=== PATIENT | male | born 1950 | race Caucasian/White ===

== ENCOUNTER 2021-01-23 09:01 | Outpatient (CLI) | payer MEDICARE ==
[2021-01-23 10:14] LABS: Hemoglobin 14.5 g/dL (13.5-17.5); Mean Corpuscular HGB CONC 33.5 g/dL (32.0-36.0); Mean Corpuscular Hemoglobin 30.3 pg (27.0-33.0); Mean Corpuscular Volume 90.4 fl (81.2-95.1); Mean Platelet Volume 9.9 fl (7.4-10.4); Platelet Count 234 10x3/uL (150-450); RBC Distribution Width 13.3 % (11.5-14.5); Red Blood Cell (RBC) Count 4.79 10x6/uL (4.32-5.72); White Blood Cell (WBC) Count 7.8 10x3/uL (3.5-10.5)
[2021-01-23 10:22] LABS: Prothrombin Time 11.3 sec (9.5-12.1)
[2021-01-23 10:44] LABS: Anion Gap 13 mmol/L (10-20); BUN (Urea Nitrogen) 13 mg/dL (8.4-25.7); Calc. Creatinine Clearance 0 mL/min (70-130); Calcium 9.7 mg/dL (7.8-10.44); Carbon Dioxide 26 mmol/L (23-31); Chloride 104 mmol/L (98-107); Glucose 138 mg/dL (83-110); Potassium 4.1 mmol/L (3.5-5.1); Sodium 139 mmol/L (136-145)
[2021-01-23 21:46] LABS: SARS-CoV-2 PCR by NAA Not Detected (NotDetected)
== END 2021-01-23 09:02 | disposition home or self-care (01) ==
LOC: LABBT 09:01
PROVIDERS: ATTEND Internal Medicine Cardiovascular Disease
DX: Z01.812 Encounter for preprocedural laboratory examination (principal); I48.0 Paroxysmal atrial fibrillation; Z20.822 Contact with and (suspected) exposure to COVID-19
CPT/HCPCS: 80048; 85027; 85610; U0003; U0005

== ENCOUNTER 2021-01-26 05:52 | Day surgery (SDC) | payer MEDICARE ==
[2021-01-25 09:55] VITALS: BMI 36.9
[2021-01-26] MEDS ORDERED: Fentanyl 100 MCG/2 ML VIAL ONE (06:17)
[2021-01-26] MEDS ORDERED: Heparin 25,000 units/D5W 500 ML ONE (06:44)
[2021-01-26] MEDS ORDERED: Heparin 10,000 UNITS/ 10 ML VIAL ONE (06:44)
[2021-01-26] MEDS ORDERED: PHENYLEPHRINE-NS 100 MCG/ML 10 ML SYRINGE ONE (06:52)
[2021-01-26] MEDS ORDERED: Ondansetron PF 4 MG/2 ML Vial ONE (06:52)
[2021-01-26] MEDS ORDERED: Lidocaine 1% PF 5 ML VIAL ONE (06:52)
[2021-01-26] MEDS ORDERED: Dexamethasone 20 MG/5 ML VIAL ONE (06:52)
[2021-01-26] MEDS ORDERED: Rocuronium Bromide 10 MG/ML (10ML VIAL) ONE (06:52)
[2021-01-26] MEDS ORDERED: PROPOFOL 200 MG/20 ML VIAL ONE (06:52)
[2021-01-26] MEDS ORDERED: ePHEDrine 50 MG/ML VIAL ONE (06:52)
[2021-01-26] MEDS ORDERED: Scopolamine 1.5 mg/72 hour Patch ONE (07:00)
[2021-01-26] MEDS ORDERED: SUGAMMADEX SODIUM 200 MG/2 ML VIAL ONE (10:11)
[2021-01-26] MEDS ORDERED: Protamine Sulfate 50 MG/5 ML VIAL ONE (10:11)
== END 2021-01-26 14:48 | disposition home or self-care (01) ==
LOC: SDC 05:52
PROVIDERS: ATTEND Internal Medicine Cardiovascular Disease
PROC: 4A0234Z Measurement of Cardiac Electrical Activity, Percutaneous Approach (ICD-10-PCS; principal; 2021-01-26)
PROC: 02583ZZ Destruction of Conduction Mechanism, Percutaneous Approach (ICD-10-PCS; 2021-01-26)
PROC: 02K83ZZ Map Conduction Mechanism, Percutaneous Approach (ICD-10-PCS; 2021-01-26)
PROC: B24CZZ4 Ultrasonography of Pericardium, Transesophageal (ICD-10-PCS; 2021-01-26)
PROC: B24BZZ4 Ultrasonography of Heart with Aorta, Transesophageal (ICD-10-PCS; 2021-01-26)
DX: I48.0 Paroxysmal atrial fibrillation (principal); I48.3 Typical atrial flutter; Z79.82 Long term (current) use of aspirin; Z79.01 Long term (current) use of anticoagulants; Z79.4 Long term (current) use of insulin; Z79.899 Other long term (current) drug therapy; Z98.890 Other specified postprocedural states; Z87.19 Personal history of other diseases of the digestive system
CPT/HCPCS: 76942; 85347 ×2; 93005; 93312; 93613; 93623; 93655; 93656; 93657; 93662; C1730; C1731; C1732; C1759; C2630; J1100; J1644; J2405; J2704; J2720; J3010; J3490

== ENCOUNTER 2021-12-22 11:55 | Outpatient (CLI) | payer MEDICARE ==
[2021-12-20 12:24] VITALS: BMI 35.1
[2021-12-22] MEDS ORDERED: Midazolam HCl 2 mg/2 ml Vial ONE (13:23)
== END 2021-12-22 14:57 | disposition home or self-care (01) ==
LOC: MRI 11:55
PROVIDERS: ATTEND Anesthesiology
DX: M51.16 Intervertebral disc disorders with radiculopathy, lumbar region (principal); M47.26 Other spondylosis with radiculopathy, lumbar region; M47.817 Spondylosis without myelopathy or radiculopathy, lumbosacral region; M47.815 Spondylosis without myelopathy or radiculopathy, thoracolumbar region; I71.4 Abdominal aortic aneurysm, without rupture
CPT/HCPCS: 72148; J2250

== ENCOUNTER 2022-03-26 19:42 | Inpatient (IN) | payer MEDICARE ==
[2022-03-26] MEDS ORDERED: Ondansetron PF 4 MG/2 ML Vial ONE (20:18)
[2022-03-26] MEDS ORDERED: Piperacillin/Tazobactam 3.375 GM VIAL ONE (20:35)
[2022-03-26] MEDS ORDERED: Sodium Chloride 0.9% 100 ML ONE (20:35)
[2022-03-26 21:03] LABS: Hemoglobin 15.9 g/dL (14.0-18.0); Mean Corpuscular Hemoglobin 31.9 pg (27.0-31.0); Mean Corpuscular Volume 96.9 fL (78.0-98.0); Mean Platelet Volume 7.6 fL (7.4-10.4); Platelet Count 267 thou/uL (130-400); RBC Distribution Width 12.5 % (11.5-14.5); Red Blood Cell (RBC) Count 4.98 mill/uL (4.70-6.10); White Blood Cell (WBC) Count 8.8 thou/uL (4.8-10.8)
[2022-03-26 21:18] LABS: Band 16 % (5-11); Lymphocytes 10 % (21-51); MDiff Complete? YES; Monocytes 14 % (0-10); Neutrophil 54 % (42-75); Platelet Morphology Comment Appears Adequate; RBC Morphology Normal; Reactive Lymphocytes 6 % (0-10)
[2022-03-26 21:47] LABS: SARS-CoV-2 NAA Rapid Test Not Detected (NotDetected)
[2022-03-26 21:47] LABS: ALT (SGPT) 15 U/L (8-55); AST (SGOT) 28 U/L (5-34); Albumin 3.8 g/dL (3.4-4.8); Alkaline Phosphatase 96 U/L (40-110); Anion Gap 16 mmol/L (10-20); BUN (Urea Nitrogen) 29 mg/dL (8.4-25.7); Bilirubin, Total 1.5 mg/dL (0.2-1.2); Calc. Creatinine Clearance 0 mL/min (70-130); Calcium 8.5 mg/dL (7.8-10.44); Carbon Dioxide 20 mmol/L (23-31); Chloride 105 mmol/L (98-107); Estimated GFR 61; Globulin 2.6 g/dL (2.4-3.5); Glucose 185 mg/dL (83-110); Lipase 8 U/L (8-78); Potassium 3.9 mmol/L (3.5-5.1); Protein, Total 6.4 g/dL (5.8-8.1); Sodium 137 mmol/L (136-145)
[2022-03-27] MEDS ORDERED: Acetaminophen 325 MG TAB PO PRN (04:00)
[2022-03-27] MEDS ORDERED: Ondansetron ODT 4 MG TAB SL PRN (04:00)
[2022-03-27] MEDS ORDERED: Ondansetron PF 4 MG/2 ML Vial IVP PRN (04:00)
[2022-03-27] MEDS ORDERED: Dextrose 5% in Water 1,000 ML IV PRN (05:42)
[2022-03-27] MEDS ORDERED: Dextrose 50% Abboject 50 ML SYRINGE SLOW IVP PRN (05:42)
[2022-03-27] MEDS ORDERED: HumaLOG 300 UNITS/3 ML VIAL SC PRN ×2 (05:42)
[2022-03-27 06:40] VITALS: BMI 35.6
[2022-03-27] MEDS: Piperacillin/Tazobactam 3.375 GM in Sodium Chloride 0.9% 100 ML IVPB SCH ×2 (06:49→12:00)
[2022-03-27] MEDS: Sodium Chloride 0.9% 1,000 ML IV SCH ×2 (06:53→15:45)
[2022-03-27 12:57] LABS: Bilirubin Negative (Negative); Blood, Urine Negative (Negative); Clarity Clear (Clear); Glucose, Urine (Dipstick) Normal (Negative); Ketone, Urine 60 mg/dL (Negative); Leukocyte Negative Leu/uL (Negative); Nitrite Negative (Negative); Protein, Urine (Dipstick) 10 mg/dL (Neg-Trace); Urobilinogen Normal mg/dL (Less than 2); pH, Urine 5.5 (5.0-9.0)
[2022-03-27 13:03] LABS: Specific Gravity, Urine 1.046 (1.002-1.036)
[2022-03-27] MEDS ORDERED: Iopamidol-370 76% 500 ML 1 ML ONE (15:00)
[2022-03-27 16:25] VITALS: BP 133/90; TEMP 97.3
[2022-03-28] MEDS ORDERED: Atorvastatin Calcium 20 MG TAB PO SCH (09:00)
== END 2022-03-27 16:30 | disposition home or self-care (01) | DRG 393 ==
LOC: ERS 19:42 → 2NO 03-27 02:43
PROVIDERS: ADMIT Internal Medicine; ATTEND Hospitalist
DX: K35.80 Unspecified acute appendicitis (principal); I71.02 Dissection of abdominal aorta; I48.0 Paroxysmal atrial fibrillation; E11.9 Type 2 diabetes mellitus without complications; N28.89 Other specified disorders of kidney and ureter; E78.00 Pure hypercholesterolemia, unspecified; E66.9 Obesity, unspecified; G47.33 Obstructive sleep apnea (adult) (pediatric); Z79.01 Long term (current) use of anticoagulants; Z79.899 Other long term (current) drug therapy; E86.0 Dehydration; I11.9 Hypertensive heart disease without heart failure; D49.0 Neoplasm of unspecified behavior of digestive system; K52.9 Noninfective gastroenteritis and colitis, unspecified; Z87.891 Personal history of nicotine dependence; Z68.35 Body mass index [BMI] 35.0-35.9, adult; Z20.822 Contact with and (suspected) exposure to COVID-19
CPT/HCPCS: 36415; 36416; 74177; 80053; 81003; 83605; 83690; 84484; 85025; 87040; 93005; 96361; 96365; 96375; G0103; J2405; J2543; J3490; Q9967

== ENCOUNTER 2022-04-06 11:26 | Outpatient (CLI) | payer MEDICARE ==
[~2022-04-06 11:26] MED LIST: Iopamidol 370 76% 100 ML VIAL ONE
== END 2022-04-06 11:27 | disposition home or self-care (01) ==
LOC: CT 11:26
PROVIDERS: ATTEND Urology
DX: N28.1 Cyst of kidney, acquired (principal); N28.89 Other specified disorders of kidney and ureter; I48.91 Unspecified atrial fibrillation; I71.43 Infrarenal abdominal aortic aneurysm, without rupture; I71.40 Abdominal aortic aneurysm, without rupture, unspecified; K57.30 Diverticulosis of large intestine without perforation or abscess without bleeding; I77.89 Other specified disorders of arteries and arterioles
CPT/HCPCS: 71260; 74175; 74178

== ENCOUNTER 2022-05-01 09:30 | Inpatient (IN) | payer MEDICARE ==
[2022-05-14] MEDS ORDERED: Levofloxacin 500 mg/D5W 100 ml Premix Bag ONE (06:28)
[2022-05-14] MEDS ORDERED: Gentamicin 80 MG/2 ML VIAL ONE (06:31)
[2022-05-14] MEDS ORDERED: fentaNYL PF 100 MCG/2 ML SYRINGE ONE ×2 (06:51)
[2022-05-14 06:55] LABS: PTT 30.8 sec (22.9-36.1); Prothrombin Time 13.9 sec (12.0-14.7)
[2022-05-14 07:11] LABS: SARS-CoV-2 NAA Rapid Test Not Detected (NotDetected)
[2022-05-14] MEDS ORDERED: Sodium Chloride 0.9% 100 ML ONE (07:24)
[2022-05-14] MEDS ORDERED: CEFAZOLIN 2 GM VIAL ONE (07:24)
[2022-05-14] MEDS ORDERED: Dexamethasone 20 MG/5 ML VIAL ONE (07:36)
[2022-05-14] MEDS ORDERED: Rocuronium Bromide 10 MG/ML (10ML VIAL) ONE (07:36)
[2022-05-14] MEDS ORDERED: Lidocaine 1.5% w/Epi 1:200K 30 ML VIAL (Epid Use) ONE (07:36)
[2022-05-14] MEDS ORDERED: Phenylephrine 10 MG/ML VIAL ONE (07:36)
[2022-05-14] MEDS ORDERED: Ondansetron PF 4 MG/2 ML Vial ONE (07:36)
[2022-05-14] MEDS ORDERED: ePHEDrine 50 MG/ML VIAL ONE (07:36)
[2022-05-14] MEDS ORDERED: PROPOFOL 200 MG/20 ML VIAL ONE (07:36)
[2022-05-14] MEDS ORDERED: Vecuronium 10 MG VIAL ONE (07:36)
[2022-05-14] MEDS ORDERED: Ropivacaine 0.2% HCl/PF 20 ML ONE (08:04)
[2022-05-14] MEDS ORDERED: Albumin 5% 500 ML ONE (08:40)
[2022-05-14] MEDS ORDERED: SUGAMMADEX SODIUM 200 MG/2 ML VIAL ONE (10:59)
[2022-05-14] MEDS ORDERED: Phenazopyridine HCl 95 MG TAB PO PRN (11:36)
[2022-05-14] MEDS ORDERED: Dextrose 50% Abboject 50 ML SYRINGE SLOW IVP PRN (11:36)
[2022-05-14] MEDS ORDERED: Bisacodyl 10 MG SUPP PR PRN (11:36)
[2022-05-14] MEDS ORDERED: Insulin Regular 300 UNITS/3 ML VIAL SC PRN (11:36)
[2022-05-14] MEDS ORDERED: hydrALAZINE 20 MG/ML VIAL SLOW IVP PRN (11:36)
[2022-05-14] MEDS ORDERED: Mag-Al 1200 mg/1200 mg/30 ML UDCUP PO PRN (11:36)
[2022-05-14] MEDS ORDERED: Ondansetron PF 4 MG/2 ML Vial IVP PRN ×2 (11:36→11:45)
[2022-05-14] MEDS ORDERED: Dextrose 5% in Water 1,000 ML IV PRN (11:36)
[2022-05-14] MEDS ORDERED: Oxybutynin 5 MG TAB PO PRN (11:36)
[2022-05-14] MEDS ORDERED: Zolpidem Tartrate 5 MG TAB PO PRN ×2 (11:36→11:45)
[2022-05-14] MEDS ORDERED: diphenhydrAMINE 50 MG/ML VIAL IVP PRN ×2 (11:36→11:45)
[2022-05-14] MEDS ORDERED: FENTANYL 50 MCG/ML 1 ML VIAL SLOW IVP PRN (11:39)
[2022-05-14] MEDS ORDERED: Acetaminophen 325 MG TAB PO PRN (11:40)
[2022-05-14] MEDS ORDERED: HYDROcodone/Acetaminophen 5/325 mg Tablet PO PRN (11:41)
[2022-05-14] MEDS ORDERED: traMADol HCl 50 MG TAB PO PRN (11:42)
[2022-05-14] MEDS ORDERED: Promethazine HCl 25 MG/ML VIAL IM PRN (11:45)
[2022-05-14] MEDS ORDERED: Bupivacaine 0.25% 10 ML VIAL EPIDURAL PRN (11:45)
[2022-05-14] MEDS ORDERED: Promethazine HCl 25 MG SUPP PR PRN (11:45)
[2022-05-14] MEDS ORDERED: Naloxone HCl 0.4 mg/ml Vial IVP PRN (11:45)
[2022-05-14] MEDS ORDERED: Moisturizing Cream (Eucerin) 113 GM JAR TOP PRN (11:45)
[2022-05-14] MEDS ORDERED: diphenhydrAMINE 50 MG/ML VIAL IM PRN (11:45)
[2022-05-14] MEDS ORDERED: diphenhydrAMINE 25 MG CAP PO PRN (11:45)
[2022-05-14] MEDS ORDERED: Naloxone HCl 0.4 mg/ml Vial IV PRN (11:45)
[2022-05-14] MEDS ORDERED: FENTANYL 50 MCG/ML 1 ML VIAL ONE (11:50)
[2022-05-14 11:53] LABS: #Eosinphils 0.1 thou/uL (0.0-0.7); #Lymphocytes 0.9 thou/uL (1.20-3.40); #Monocytes 0.3 thou/uL (0.11-0.59); #Neutrophils 9.9 thou/uL (1.40-6.50); %Basophils 0.1 % (0.0-1.0); %Eosinophils 0.6 % (0.0-10.0); %Lymphocytes 8.3 % (21.0-51.0); %Monocytes 2.6 % (0.0-10.0); %Neutrophils 88.4 % (42.0-75.0); Hemoglobin 12.6 g/dL (14.0-18.0); Mean Corpuscular HGB CONC 34.2 g/dL (32.0-36.0); Mean Corpuscular Hemoglobin 32.2 pg (27.0-31.0); Mean Corpuscular Volume 94.1 fl (78.0-98.0); Mean Platelet Volume 7.1 fL (7.4-10.4); Platelet Count 193 10x3/uL (130-400); Red Blood Cell (RBC) Count 3.92 mill/uL (4.70-6.10); White Blood Cell (WBC) Count 11.3 10x3/uL (4.8-10.8)
[2022-05-14 12:10] LABS: Anion Gap 12 mmol/L (10-20); BUN (Urea Nitrogen) 10 mg/dL (8.4-25.7); Calc. Creatinine Clearance 113 mL/min (70-130); Calcium 8.1 mg/dL (7.8-10.44); Carbon Dioxide 23 mmol/L (23-31); Chloride 107 mmol/L (98-107); Estimated GFR 82; Glucose 146 mg/dL (83-110); Potassium 3.8 mmol/L (3.5-5.1); Sodium 138 mmol/L (136-145)
[2022-05-14 22:31] VITALS: BMI 33.7
[2022-05-14] MEDS: Sodium Chloride 0.9% 1,000 ML IV SCH (22:55)
[2022-05-14] MEDS: Atorvastatin Calcium 20 MG TAB PO SCH (22:55)
[2022-05-14] MEDS: Famotidine/PF 20 mg/2ml Vial SLOW IVP SCH (22:56)
[2022-05-14] MEDS: Docusate 100 MG CAP PO SCH (22:56)
[2022-05-15] MEDS: Fentanyl/Bupivacaine 100 ML EPIDURAL SCH ×2 (01:37→14:27)
[2022-05-15 05:13] LABS: #Monocytes 0.8 thou/uL (0.11-0.59); #Neutrophils 7.7 thou/uL (1.40-6.50); %Basophils 0.1 % (0.0-1.0); %Eosinophils 0.3 % (0.0-10.0); %Lymphocytes 10.6 % (21.0-51.0); %Monocytes 8.3 % (0.0-10.0); %Neutrophils 80.7 % (42.0-75.0); Hemoglobin 11.5 g/dL (14.0-18.0); Mean Corpuscular HGB CONC 33.5 g/dL (32.0-36.0); Mean Corpuscular Hemoglobin 31.9 pg (27.0-31.0); Mean Corpuscular Volume 95.2 fl (78.0-98.0); Mean Platelet Volume 7.4 fL (7.4-10.4); Platelet Count 178 10x3/uL (130-400); RBC Distribution Width 12.1 % (11.5-14.5); White Blood Cell (WBC) Count 9.5 10x3/uL (4.8-10.8)
[2022-05-15 05:29] LABS: Anion Gap 12 mmol/L (10-20); BUN (Urea Nitrogen) 12 mg/dL (8.4-25.7); Calc. Creatinine Clearance 96 mL/min (70-130); Calcium 7.8 mg/dL (7.8-10.44); Carbon Dioxide 21 mmol/L (23-31); Chloride 107 mmol/L (98-107); Estimated GFR 69; Glucose 125 mg/dL (83-110); Potassium 3.9 mmol/L (3.5-5.1); Sodium 136 mmol/L (136-145)
[2022-05-15] MEDS: cefTRIAXone\\ROCEPHIN 1 GM in Sodium Chloride 0.9% 100 ML IVPB SCH (06:07)
[2022-05-15] MEDS: Tamsulosin HCl 0.4 MG CAP PO SCH (08:57)
[2022-05-15] MEDS: Famotidine/PF 20 mg/2ml Vial SLOW IVP SCH ×2 (08:57→20:22)
[2022-05-15] MEDS: Docusate 100 MG CAP PO SCH ×2 (08:57→20:21)
[2022-05-15] MEDS: Hydrochlorothiazide 25 MG TAB PO SCH (08:58)
[2022-05-15] MEDS ORDERED: FLU VACC QS2022-23(65YR UP)/PF 240 MCG/0.7 ML SYRINGE IM ONE (09:00)
[2022-05-15 16:27] LABS: Hemoglobin 11.5 g/dL (14.0-18.0)
[2022-05-15] MEDS: Acetaminophen 500 MG TAB PO PRN (17:20)
[2022-05-15] MEDS: Atorvastatin Calcium 20 MG TAB PO SCH (20:21)
[2022-05-16] MEDS: Fentanyl/Bupivacaine 100 ML EPIDURAL SCH ×2 (02:49→18:03)
[2022-05-16] MEDS: cefTRIAXone\\ROCEPHIN 1 GM in Sodium Chloride 0.9% 100 ML IVPB SCH (05:34)
[2022-05-16 06:49] LABS: #Eosinphils 0.1 thou/uL (0.0-0.7); #Lymphocytes 1.1 thou/uL (1.20-3.40); #Monocytes 0.8 thou/uL (0.11-0.59); #Neutrophils 7.3 thou/uL (1.40-6.50); %Basophils 0.3 % (0.0-1.0); %Eosinophils 1.2 % (0.0-10.0); %Lymphocytes 12.1 % (21.0-51.0); %Monocytes 8.1 % (0.0-10.0); %Neutrophils 78.4 % (42.0-75.0); Hemoglobin 11.6 g/dL (14.0-18.0); Mean Corpuscular HGB CONC 33.3 g/dL (32.0-36.0); Mean Corpuscular Hemoglobin 31.7 pg (27.0-31.0); Mean Corpuscular Volume 95.4 fl (78.0-98.0); Mean Platelet Volume 7.1 fL (7.4-10.4); Platelet Count 175 10x3/uL (130-400); RBC Distribution Width 11.9 % (11.5-14.5); Red Blood Cell (RBC) Count 3.66 mill/uL (4.70-6.10); White Blood Cell (WBC) Count 9.3 10x3/uL (4.8-10.8)
[2022-05-16 07:04] LABS: Anion Gap 13 mmol/L (10-20); BUN (Urea Nitrogen) 10 mg/dL (8.4-25.7); Calc. Creatinine Clearance 84 mL/min (70-130); Calcium 8.3 mg/dL (7.8-10.44); Carbon Dioxide 23 mmol/L (23-31); Chloride 102 mmol/L (98-107); Estimated GFR 59; Glucose 118 mg/dL (83-110); Potassium 3.8 mmol/L (3.5-5.1); Sodium 134 mmol/L (136-145)
[2022-05-16] MEDS: Acetaminophen 500 MG TAB PO PRN (09:42)
[2022-05-16] MEDS: Docusate 100 MG CAP PO SCH ×2 (09:43→20:29)
[2022-05-16] MEDS: Famotidine/PF 20 mg/2ml Vial SLOW IVP SCH ×2 (09:43→20:29)
[2022-05-16] MEDS: Hydrochlorothiazide 25 MG TAB PO SCH (09:43)
[2022-05-16] MEDS: Tamsulosin HCl 0.4 MG CAP PO SCH (09:43)
[2022-05-16] MEDS: Atorvastatin Calcium 20 MG TAB PO SCH (20:29)
[2022-05-17] MEDS: cefTRIAXone\\ROCEPHIN 1 GM in Sodium Chloride 0.9% 100 ML IVPB SCH (05:39)
[2022-05-17 06:25] LABS: #Eosinphils 0.2 thou/uL (0.0-0.7); #Monocytes 0.8 thou/uL (0.11-0.59); #Neutrophils 6.7 thou/uL (1.40-6.50); %Basophils 0.2 % (0.0-1.0); %Eosinophils 2.6 % (0.0-10.0); %Lymphocytes 11.5 % (21.0-51.0); %Monocytes 8.6 % (0.0-10.0); %Neutrophils 77.1 % (42.0-75.0); Hemoglobin 11.9 g/dL (14.0-18.0); Mean Corpuscular HGB CONC 33.1 g/dL (32.0-36.0); Mean Corpuscular Hemoglobin 30.9 pg (27.0-31.0); Mean Corpuscular Volume 93.2 fl (78.0-98.0); Mean Platelet Volume 7.6 fL (7.4-10.4); Platelet Count 206 10x3/uL (130-400); RBC Distribution Width 11.8 % (11.5-14.5); Red Blood Cell (RBC) Count 3.84 mill/uL (4.70-6.10); White Blood Cell (WBC) Count 8.7 10x3/uL (4.8-10.8)
[2022-05-17 06:32] LABS: Anion Gap 11 mmol/L (10-20); BUN (Urea Nitrogen) 11 mg/dL (8.4-25.7); Calc. Creatinine Clearance 92 mL/min (70-130); Calcium 8.8 mg/dL (7.8-10.44); Carbon Dioxide 27 mmol/L (23-31); Chloride 97 mmol/L (98-107); Estimated GFR 66; Glucose 125 mg/dL (83-110); Potassium 3.2 mmol/L (3.5-5.1); Sodium 132 mmol/L (136-145)
[2022-05-17] MEDS ORDERED: Bupivacaine 0.25% 10 ML VIAL EPIDURAL PRN (07:11)
[2022-05-17] MEDS: Hydrochlorothiazide 25 MG TAB PO SCH (09:16)
[2022-05-17] MEDS: Tamsulosin HCl 0.4 MG CAP PO SCH (09:16)
[2022-05-17] MEDS: Docusate 100 MG CAP PO SCH ×2 (09:16→22:15)
[2022-05-17] MEDS: Famotidine/PF 20 mg/2ml Vial SLOW IVP SCH ×2 (09:16→22:15)
[2022-05-17] MEDS: Fentanyl/Bupivacaine 100 ML EPIDURAL SCH (10:17)
[2022-05-17] MEDS: traMADol HCl 50 MG TAB PO PRN (18:12)
[2022-05-17] MEDS: Atorvastatin Calcium 20 MG TAB PO SCH (22:14)
[2022-05-17] MEDS: HYDROcodone/Acetaminophen 5/325 mg Tablet PO PRN (22:19)
[2022-05-18] MEDS: traMADol HCl 50 MG TAB PO PRN ×2 (00:17→06:24)
[2022-05-18] MEDS: HYDROcodone/Acetaminophen 5/325 mg Tablet PO PRN (03:03)
[2022-05-18 05:37] LABS: #Eosinphils 0.4 thou/uL (0.0-0.7); #Lymphocytes 1.5 thou/uL (1.20-3.40); #Monocytes 0.8 thou/uL (0.11-0.59); #Neutrophils 5.2 thou/uL (1.40-6.50); %Basophils 0.1 % (0.0-1.0); %Eosinophils 4.8 % (0.0-10.0); %Lymphocytes 18.6 % (21.0-51.0); %Neutrophils 66.5 % (42.0-75.0); Hemoglobin 12.5 g/dL (14.0-18.0); Mean Corpuscular HGB CONC 33.5 g/dL (32.0-36.0); Mean Corpuscular Hemoglobin 31.2 pg (27.0-31.0); Mean Corpuscular Volume 93.1 fl (78.0-98.0); Mean Platelet Volume 7.4 fL (7.4-10.4); Platelet Count 263 10x3/uL (130-400); RBC Distribution Width 11.7 % (11.5-14.5); White Blood Cell (WBC) Count 7.8 10x3/uL (4.8-10.8)
[2022-05-18 06:54] LABS: Chloride 94 mmol/L (98-107); Potassium 3.1 mmol/L (3.5-5.1); Sodium 132 mmol/L (136-145)
[2022-05-18 06:55] LABS: Calcium 8.8 mg/dL (7.8-10.44); Glucose 128 mg/dL (83-110)
[2022-05-18 06:56] LABS: Anion Gap 12 mmol/L (10-20); Carbon Dioxide 29 mmol/L (23-31)
[2022-05-18 06:58] LABS: Calc. Creatinine Clearance 96 mL/min (70-130); Estimated GFR 69
[2022-05-18 06:59] LABS: BUN (Urea Nitrogen) 13 mg/dL (8.4-25.7)
[2022-05-18 08:14] VITALS: BP 153/91; TEMP 97.5
[2022-05-18] MEDS: Hydrochlorothiazide 25 MG TAB PO SCH (08:23)
[2022-05-18] MEDS: Docusate 100 MG CAP PO SCH (08:23)
[2022-05-18] MEDS: Tamsulosin HCl 0.4 MG CAP PO SCH (08:23)
[2022-05-23 14:21] LABS: Actual Bicarbonate (HCO3a) 24.3 mEq/L (22-28); Analyzer IN Cardio OR; CO2 Tension 38.4 mmHg (35.0-45.0); Calcium, Ionized (arterial) 1.07 mmol/L (1.12-1.30); Carboxyhemoglobin (COHb) 0.8 gm% (0.0-3.0); Hemoglobin (Hb) 12.8 g/dL (14.0-18.0); O2 Tension (PaO2), arterial 398.5 mmHg (> 70.0); Potassium - ABG Lab 3.14 mmol/L (3.70-5.30); pH, Arterial 7.42 (7.35-7.45)
[2022-05-23 14:22] LABS: Puncture Site Arterial Line
== END 2022-05-18 10:50 | disposition home or self-care (01) | DRG 658 ==
LOC: SURG A 05-14 05:42
PROVIDERS: ADMIT Urology; ATTEND Urology
PROC: 0TB10ZZ Excision of Left Kidney, Open Approach (ICD-10-PCS; principal; 2022-05-14)
PROC: 30233J1 Transfusion of Nonautologous Serum Albumin into Peripheral Vein, Percutaneous Approach (ICD-10-PCS; 2022-05-14)
DX: C64.2 Malignant neoplasm of left kidney, except renal pelvis (principal); I48.91 Unspecified atrial fibrillation; I10 Essential (primary) hypertension; E11.9 Type 2 diabetes mellitus without complications; E78.00 Pure hypercholesterolemia, unspecified; M54.9 Dorsalgia, unspecified; G89.29 Other chronic pain; N28.1 Cyst of kidney, acquired; R35.0 Frequency of micturition; I71.43 Infrarenal abdominal aortic aneurysm, without rupture; D17.71 Benign lipomatous neoplasm of kidney; N20.0 Calculus of kidney; E66.01 Morbid (severe) obesity due to excess calories; Z20.822 Contact with and (suspected) exposure to COVID-19; Z90.89 Acquired absence of other organs; Z98.890 Other specified postprocedural states; Z79.01 Long term (current) use of anticoagulants; Z87.891 Personal history of nicotine dependence; Z68.35 Body mass index [BMI] 35.0-35.9, adult; Z79.899 Other long term (current) drug therapy
CPT/HCPCS: 36415; 36416; 71045; 80048; 82570; 85025; 85610; 85730; 86850; 86900; 86901; 88307; 88341; 88342; A4649; C1713; C1776; C1889; J0696; J1100; J1580; J1815; J1956; J2001; J2370; J2405; J2704; J2795; J3010; J3490; P9045; S0028; U0002

== ENCOUNTER 2022-05-02 09:20 | Outpatient (CLI) | payer MEDICARE ==
[2022-05-02 10:22] LABS: Bilirubin Neg (Negative); Blood, Urine Negative (Negative); Clarity Clear (Clear); Glucose, Urine (Dipstick) Normal (Negative); Ketone, Urine Negative (Negative); Leukocyte Negative (Negative); Nitrite Negative (Negative); Protein, Urine (Dipstick) Negative (Neg-Trace); Specific Gravity, Urine 1.015 (1.005-1.030); Urobilinogen Normal mg/dL (Less than 2)
[2022-05-02 10:28] LABS: Hemoglobin 13.8 g/dL (13.5-17.5); Mean Corpuscular HGB CONC 34.4 g/dL (32.0-36.0); Mean Corpuscular Hemoglobin 31.3 pg (27.0-33.0); Mean Corpuscular Volume 90.9 fl (81.2-95.1); Mean Platelet Volume 9.5 fl (7.4-10.4); Platelet Count 239 10x3/uL (150-450); RBC Distribution Width 12.7 % (11.5-14.5); Red Blood Cell (RBC) Count 4.41 10x6/uL (4.32-5.72); White Blood Cell (WBC) Count 6.5 10x3/uL (3.5-10.5)
[2022-05-02 10:35] LABS: Bacteria/HPF Rare-Few HPF (None Seen); RBC/HPF 0-3 HPF (0-3); Squamous Epithelial 0-3 HPF (0-3); WBC/HPF 0-3 HPF (0-3)
[2022-05-02 10:36] LABS: PTT 28.7 sec (22.0-33.0); Prothrombin Time 10.9 sec (9.5-12.1)
[2022-05-02 10:40] LABS: Anion Gap 12 mmol/L (10-20); BUN (Urea Nitrogen) 14 mg/dL (8.4-25.7); Calc. Creatinine Clearance 0 mL/min (70-130); Calcium 9.7 mg/dL (7.8-10.44); Carbon Dioxide 28 mmol/L (23-31); Chloride 101 mmol/L (98-107); Estimated GFR 77; Glucose 110 mg/dL (83-110); Potassium 4.4 mmol/L (3.5-5.1); Sodium 137 mmol/L (136-145)
== END 2022-05-02 09:21 | disposition home or self-care (01) ==
LOC: LABBT 09:20
PROVIDERS: ATTEND Urology
DX: Z01.818 Encounter for other preprocedural examination (principal); Z12.5 Encounter for screening for malignant neoplasm of prostate; K42.9 Umbilical hernia without obstruction or gangrene; I48.91 Unspecified atrial fibrillation; N28.1 Cyst of kidney, acquired; I71.43 Infrarenal abdominal aortic aneurysm, without rupture; E11.9 Type 2 diabetes mellitus without complications; M54.40 Lumbago with sciatica, unspecified side; G89.29 Other chronic pain; N28.89 Other specified disorders of kidney and ureter; R35.0 Frequency of micturition; Z79.01 Long term (current) use of anticoagulants
CPT/HCPCS: 71046; 80048; 81001; 85027; 85610; 85730; 87086

== ENCOUNTER 2023-02-28 12:31 | Outpatient (CLI) | payer MEDICARE | END 2023-02-28 12:32 | disposition home or self-care (01) | LOC: ULT 12:31 | PROVIDERS: ATTEND Urology | DX: C64.2 Malignant neoplasm of left kidney, except renal pelvis (principal); R35.0 Frequency of micturition; D17.71 Benign lipomatous neoplasm of kidney; N28.89 Other specified disorders of kidney and ureter; Z90.5 Acquired absence of kidney | CPT/HCPCS: 71046; 76770 ==

== ENCOUNTER 2024-03-26 10:37 | Outpatient (CLI) | payer MEDICARE | END 2024-03-26 10:38 | disposition home or self-care (01) | LOC: BICCT 10:37 | PROVIDERS: ATTEND Urology | DX: N28.1 Cyst of kidney, acquired (principal); Z12.5 Encounter for screening for malignant neoplasm of prostate; C64.2 Malignant neoplasm of left kidney, except renal pelvis; I71.43 Infrarenal abdominal aortic aneurysm, without rupture; Z98.890 Other specified postprocedural states | CPT/HCPCS: 71046; 74178 ==

== ENCOUNTER 2024-07-09 10:45 | Outpatient (CLI) | payer MEDICARE | END 2024-07-09 10:46 | disposition home or self-care (01) | LOC: BICCT 10:45 | PROVIDERS: ATTEND Urology | DX: N20.0 Calculus of kidney (principal) | CPT/HCPCS: 74176 ==

== ENCOUNTER 2025-03-15 14:41 | Outpatient (CLI) | payer MEDICARE | END 2025-03-15 14:42 | disposition home or self-care (01) | LOC: ULT 14:41 | PROVIDERS: ATTEND Urology | DX: Z12.5 Encounter for screening for malignant neoplasm of prostate (principal); C64.2 Malignant neoplasm of left kidney, except renal pelvis; N28.1 Cyst of kidney, acquired; D17.71 Benign lipomatous neoplasm of kidney | CPT/HCPCS: 71046; 76770 ==